=== PATIENT | male | born 1940 | race Two or more races ===

== ENCOUNTER → 2017-02-20 | Outpatient (CLI) | payer MEDICARE, OTHER ==
[~2017-02-20] MED LIST: A20IH1 IH; ACET-2247 PO; ALLO100T PO; AMLO2.5T PO; BISA10SU8 PR; BRIM15OS OU; BUME1TAB30 PO; CHOL200016 PO; CLON.1 PO; CLOP75 PO; DEXL30CA3 PO; ELTR25TA PO; FAMO20 PO; HYDR-3965 PO; HYDR10 PO; HYDR25TA PO; IPRNEB IH; LATA2.5D2 OU; METO25 PO; MOM30 PO; ONDA22I IVP; PRED20TA3 PO; ZOLP5 PO
[2017-02-20 12:36] LABS: EOSINOPHILS # (AUTO) 0.11 K/uL (0.00-0.70); EOSINOPHILS % (AUTO) 1.03 % (1.0-6.0); HEMATOCRIT 33.7 % (41-53); LYMPHOCYTES # (AUTO) 0.8 K/uL (1.0-4.8); LYMPHOCYTES % (AUTO) 7.4 % (22.0-44.0); MEAN CORPUSCULAR HEMOGLOBIN 33.8 pg (26.0-34.0); MEAN CORPUSCULAR HGB CONC 32.6 G/dL (31.0-37.0); MEAN CORPUSCULAR VOLUME 104 fL (80-100); MONOCYTES # (AUTO) 0.7 K/uL (0.1-1.0); MONOCYTES % (AUTO) 6.3 % (2.0-9.0); NEUTROPHILS # (AUTO) 8.8 K/uL (1.8-7.7); PLATELET COUNT (AUTO) 224 K/uL (150-450); RED BLOOD CELL COUNT(AUTO) 3.26 MIL/uL (4.50-5.90); WHITE BLOOD COUNT (AUTO) 10.3 K/uL (4.5-11.0)
[2017-02-20 12:38] LABS: NEUTROPHILS % (AUTO) 85.3 % (40.0-70.0); RBC MORPHOLOGY COMMENT ABNORMAL RBC MORPH
[2017-02-20 12:42] LABS: ALBUMIN 3.1 g/dL (3.4-5.0); BILIRUBIN,TOTAL 0.3 mg/dL (0.1-1.0); CALCIUM, TOTAL 9.9 mg/dL (8.8-10.5); CHOL/HDL RATIO 3.4 (4.2-7.3); CREATININE 1.82 mg/dL (0.60-1.30); POTASSIUM 4.3 mmol/L (3.5-5.1); TOTAL PROTEIN, SERUM 7.7 g/dL (6.4-8.2)
== END | disposition home or self-care (01) ==
LOC: LABPV 10:03
PROVIDERS: ATTEND Family Medicine
DX: I12.0 Hypertensive chronic kidney disease with stage 5 chronic kidney disease or end stage renal disease (principal); N18.6 End stage renal disease; E55.9 Vitamin D deficiency, unspecified; D50.8 Other iron deficiency anemias
CPT/HCPCS: 82306

== ENCOUNTER → 2017-03-09 | Outpatient (CLI) | payer MEDICARE, OTHER ==
[~2017-03-09] VITALS: Ht 149.9 cm; Wt 64.0 kg
[2017-03-09 12:49] VITALS: BP 128/68
== END | disposition home or self-care (01) ==
LOC: SRCNTR 12:32
PROVIDERS: ATTEND Internal Medicine Critical Care Medicine
DX: I27.2 Other secondary pulmonary hypertension (principal); J84.10 Pulmonary fibrosis, unspecified; D69.3 Immune thrombocytopenic purpura; E78.5 Hyperlipidemia, unspecified; I12.9 Hypertensive chronic kidney disease with stage 1 through stage 4 chronic kidney disease, or unspecified chronic kidney disease; N18.3 Chronic kidney disease, stage 3 (moderate); I50.43 Acute on chronic combined systolic (congestive) and diastolic (congestive) heart failure; Z85.46 Personal history of malignant neoplasm of prostate
CPT/HCPCS: G0463

== ENCOUNTER → 2017-06-05 | Outpatient (CLI) | payer MEDICARE, OTHER ==
[~2017-06-05] VITALS: Ht 144.8 cm; Wt 65.5 kg
[~2017-06-05] MED LIST changes: -A20IH1 IH; -AMLO2.5T PO; -BISA10SU8 PR; -CLON.1 PO; -FAMO20 PO; -HYDR-3965 PO; -HYDR10 PO; +HYDR10TA31 PO; -IPRNEB IH; -MOM30 PO; -ONDA22I IVP; +PRED10 PO; -PRED20TA3 PO; -ZOLP5 PO
[2017-06-05 11:27] VITALS: BP 129/61
== END | disposition home or self-care (01) ==
LOC: SRCNTR 10:58
PROVIDERS: ATTEND Internal Medicine Critical Care Medicine
DX: J84.10 Pulmonary fibrosis, unspecified (principal); I27.2 Other secondary pulmonary hypertension; E78.5 Hyperlipidemia, unspecified; I13.0 Hypertensive heart and chronic kidney disease with heart failure and stage 1 through stage 4 chronic kidney disease, or unspecified chronic kidney disease; N18.3 Chronic kidney disease, stage 3 (moderate); I50.43 Acute on chronic combined systolic (congestive) and diastolic (congestive) heart failure; D69.3 Immune thrombocytopenic purpura; C4A.9 Merkel cell carcinoma, unspecified
CPT/HCPCS: G0463

== ENCOUNTER → 2017-06-25 | Outpatient (CLI) | payer MEDICARE, OTHER ==
[2017-06-25 16:15] LABS: APPEARANCE,URINE CLEAR (CLEAR); GLUCOSE, URINE (UA) NEGATIVE (NEGATIVE); KETONES,URINE NEGATIVE (NEGATIVE); LEUKOCYTE ESTERASE ,URINE NEGATIVE (NEGATIVE); OCCULT BLOOD,URINE NEGATIVE (NEGATIVE); PH,URINE 6.5 (5.0-8.0); PROTEIN,URINE NEGATIVE (NEGATIVE)
[2017-06-25 16:16] LABS: ADD UA MICROSCOPIC NO
[2017-06-25 17:39] LABS: CREATININE 2.11 mg/dL (0.60-1.30)
== END | disposition home or self-care (01) ==
LOC: LABPV 14:55
PROVIDERS: ATTEND Internal Medicine Nephrology
DX: E78.5 Hyperlipidemia, unspecified (principal); I13.0 Hypertensive heart and chronic kidney disease with heart failure and stage 1 through stage 4 chronic kidney disease, or unspecified chronic kidney disease; N18.3 Chronic kidney disease, stage 3 (moderate); I50.9 Heart failure, unspecified; R60.0 Localized edema